=== PATIENT | female | born 1985 | race Caucasian/White ===

== ENCOUNTER 2018-06-07 11:42 | Emergency (ER) | payer BC, OTHER ==
[2018-06-07] MEDS ORDERED: Metoclopramide 10 MG/2 ML SDV IVPUSH ONE (12:20)
[2018-06-07] MEDS ORDERED: Sodium Chloride 0.9% 10 ML Syringe FLUSH PRN (12:20)
[2018-06-07] MEDS ORDERED: Sodium Chloride 0.9% 500 ML IV ONE (12:20)
[2018-06-07] MEDS ORDERED: Acetaminophen 325 MG Tab PO ONE (12:20)
[2018-06-07] MEDS ORDERED: Loratadine 10 MG Tab PO ONE (12:23)
[2018-06-07] MEDS ORDERED: predniSONE 20 MG Tab PO ONE (12:23)
[2018-06-07] MEDS ORDERED: Ketorolac 30 MG/ML SDV IVPUSH SCH (12:30)
--- NOTE | 2018-06-07 12:34 | EDM.PDOC ---
ED HPI GENERAL MEDICAL PROBLEM - General Chief Complaint: Headache Stated Complaint: HEADACHE,RASH AND LEGS TINGLING Time Seen by Provider: 06/07/18 11:56 Source of Information: Reports: Patient, Family (spouse), RN Notes Reviewed - History of Present Illness INITIAL COMMENTS - FREE TEXT/NARRATIVE: 32 year old female with onset of Haabout 6 days ago, followed by intermitant chills, sweats, generalized achiness much of the last week. Started breaking out in generalized rash yesterday, worse today despite at least 1 or 2 doses of benadry. Not itchy. Has been out in the sun a lot, she and her [place]. [place]. Using sunblock. Denies sore throat. Possibly some mosquito exposure over the last 1 to 2 wks. Has mild neck soreness and stiffness as well. Has also had some tingling of both lower legs yesterday and today. Headache Pain Score (Numeric/FACES): 7 - Related Data Allergies Allergy/AdvReac Type Severity Reaction Status Date / Time No Known Allergies Allergy Verified 06/07/18 11:55 Home Meds: Home Meds . [No Known Home Meds] 06/07/18 [History] Past Medical History [employer] History: Reports: Other (See Below) Other [employer]OPER History: PCOS - Past Surgical History HEENT Surgical History: Reports: LASIK, Oral Surgery GI Surgical History: Reports: Appendectomy Social & Family History - Tobacco Use Smoking Status *Q: Current Every Day Smoker Years of Tobacco use: 16 Packs/Tins Daily: 0.5 - Caffeine Use Caffeine Use: Reports: Coffee, Energy Drinks, Soda - Recreational Drug Use Recreational Drug Use: No ED ROS GENERAL - Review of Systems Review Of Systems: See Below Constitutional: Reports: Fever (possible low grade), Chills, Malaise, Fatigue HEENT: Denies: Rhinitis, Sinus Problem, Throat Pain, Throat Swelling Respiratory: Denies: Shortness of Breath, Cough Cardiovascular: Denies: Chest Pain GI/Abdominal: Denies: Abdominal Pain, Diarrhea, Nausea, Vomiting Musculoskeletal: Reports: Neck Pain (mild neck discomfort and stiffness) Skin: Reports: Rash, Erythema Neurological: Reports: Numbness (mild bilat lower legs and feet) - Physical Exam Exam: See Below General Appearance: Alert, No Apparent Distress Eye Exam: Bilateral Eye: PERRL Nose: Normal Inspection Throat/Mouth: Normal Inspection, Normal Oropharynx Head Exam: Atraumatic. No: Facial Swelling Neck: Supple, Full Range of Motion (with very mild posterior discomfort). No: Lymphadenopathy (L), Lymphadenopathy (R) Respiratory/Chest: No Respiratory Distress, Lungs Clear, Normal Breath Sounds Cardiovascular: Regular Rate, Rhythm GI/Abdominal: Soft, Non-Tender Neuro Exam (Abbreviated): Alert, Oriented, No Motor/Sensory Deficits Back Exam: Normal Inspection Extremities: Normal Inspection, Normal Range of Motion Skin Exam: Warm, Dry, Erythema (mild to moderate erythema mostly sun exposed areas of body, mild diffuse rash also primarily sun exposed areas of body) Course - Vital Signs Last Recorded V/S: Last Vital Signs Temp 98.4 F 06/07/18 11:58 Pulse 72 06/07/18 11:58 Resp 20 06/07/18 11:58 BP 112/83 06/07/18 11:58 Pulse Ox 97 06/07/18 11:58 - Orders/Labs/Meds Orders: Active Orders 24 hr Category Date Time Status Peripheral IV Care [RC] . DIRECTED Care 06/07/18 12:20 Active [facility]IR[facility] IGM [REF] Stat Lab 06/07/18 12:35 Received Ketorolac [Toradol] Med 06/07/18 12:30 Active 30 mg IVPUSH ONETIME Sodium Chloride 0.9% [Saline Flush] Med 06/07/18 12:20 Active 10 ml FLUSH ASDIRECTED PRN Peripheral IV Insertion Adult [OM.PC] Stat Oth 06/07/18 12:20 Ordered Medication Orders Ketorolac Tromethamine (Toradol) 30 mg IVPUSH ONETIME [facility] Last Admin: 06/07/18 12:51 Dose: 30 mg Sodium Chloride (Saline Flush) 10 ml FLUSH ASDIRECTED PRN PRN Reason: Keep Vein Open Last Admin: 06/07/18 12:57 Dose: 10 ml Labs: Laboratory Tests 06/07/18 06/07/18 Range/Units 12:35 12:35 WBC 4.21 (3.98-10.04) K/mm3 RBC 4.24 (3.98-5.22) M/mm3 Hgb 13.3 (11.2-15.7) gm/L Hct 39.5 (34.1-44.9) % MCV 93.2 (79.4-94.8) fl MCH 31.4 (25.6-32.2) pg MCHC 33.7 (32.2-35.5) g/dl RDW Std Deviation 44.5 (36.4-46.3) fL Plt Count 161 L (182-369) K/mm3 MPV 10.9 (9.4-12.3) fl Neutrophils % (Manual) 39 L (40-60) % Band Neutrophils % 1 (0-10) % Lymphocytes % (Manual) 50 H (20-40) % Atypical Lymphs % 0 % Monocytes % (Manual) 8 (2-10) % Eosinophils % (Manual) 2 (0.7-5.8) % Basophils % (Manual) 0 L (0.1-1.2) Platelet Estimate Adequate RBC Morph Comment Normal Sodium 140 (136-145) mEq/L Potassium 3.9 (3.5-5.1) mEq/L Chloride 107 (98-107) mEq/L Carbon Dioxide 25 (21-32) mEq/L Anion Gap 11.9 (5-15) BUN 10 (7-18) mg/dL Creatinine 1.2 H (0.55-1.02) mg/dL Est Cr Clr Drug Dosing 57.58 mL/min Estimated GFR (MDRD) 52 (>60) mL/min BUN/Creatinine Ratio 8.3 L (14-18) Glucose 95 (74-106) mg/dL Calcium 7.9 L (8.5-10.1) mg/dL Total Bilirubin 0.2 (0.2-1.0) mg/dL AST 17 (15-37) U/L ALT 23 (14-59) U/L Alkaline Phosphatase 61 (46-116) U/L Total Protein 6.6 (6.4-8.2) g/dl Albumin 3.5 (3.4-5.0) g/dl Globulin 3.1 gm/dL Albumin/Globulin Ratio 1.1 (1-2) Meds: Medications Generic Name Dose Route Start Last Admin Trade Name Freq PRN Reason Stop Dose Admin Ketorolac Tromethamine 30 mg 06/07/18 12:30 06/07/18 12:51 Toradol IVPUSH 30 mg ONETIME SANJIV Administration Sodium Chloride 10 ml 06/07/18 12:20 06/07/18 12:57 Saline Flush FLUSH 10 ml ASDIRECTED PRN Administration Keep Vein Open Discontinued Medications Generic Name Dose Route Start Last Admin Trade Name Zackary PRN Reason Stop Dose Admin Acetaminophen 975 mg 06/07/18 12:20 06/07/18 12:54 Tylenol PO 06/07/18 12:21 975 mg NOW ONE Administration Sodium Chloride 500 mls @ 999 mls/hr 06/07/18 12:20 06/07/18 12:52 Normal Saline IV 06/07/18 12:50 999 mls/hr .BOLUS ONE Administration Loratadine 10 mg 06/07/18 12:23 06/07/18 12:54 Claritin PO 06/07/18 12:24 10 mg ONETIME ONE Administration Metoclopramide HCl 5 mg 06/07/18 12:20 06/07/18 12:53 Reglan IVPUSH 06/07/18 12:21 5 mg ONETIME ONE Administration Prednisone 40 mg 06/07/18 12:23 06/07/18 12:54 Prednisone PO 06/07/18 12:24 40 mg ONETIME ONE Administration Departure - Departure Time of Disposition: 14:11 Disposition: Home, Self-Care 01 Condition: Fair Clinical Impression: Skin rash Headache Qualifiers: Headache type: unspecified Headache chronicity pattern: acute headache Intractability: not intractable Qualified Code(s): R51 - Headache - Discharge Information Referrals: PCP,None [Primary Care Provider] - Forms: ED Department Discharge Additional Instructions: rest, avoid being out in the sun for the next 3 to 4 days until rash has completely resolved. Alternate tylenol and advil or aleve as needed for any further headache. Claritin (available OTC) 10 mg daily for rash, prednisone 40 mg next 2 mornings and than 20 mg for an addition 2 days. [place] Nile Virus screen has been sent [facility] the state lab. It usually takes about 4 days to get results. Follow up clinic in about 4 days for recheck and for results of WNV screen. Call [phone] for appointment. Return to ED as needed if symptoms worsening in any way. - My Orders Last 24 Hours: My Active Orders 06/07/18 12:20 Peripheral IV Care [RC] . DIRECTED Sodium Chloride 0.9% [Saline Flush] 10 ml FLUSH ASDIRECTED PRN Peripheral IV Insertion Adult [OM.PC] Stat 06/07/18 12:30 Ketorolac [Toradol] 30 mg IVPUSH ONETIME 06/07/18 12:35 [facility] IGM [REF] Stat - Assessment/Plan Last 24 Hours: My Active Orders 06/07/18 12:20 Peripheral IV Care [RC] . DIRECTED Sodium Chloride 0.9% [Saline Flush] 10 ml FLUSH ASDIRECTED PRN Peripheral IV Insertion Adult [OM.PC] Stat 06/07/18 12:30 Ketorolac [Toradol] 30 mg IVPUSH ONETIME 06/07/18 12:35 [facility] IGM [REF] Stat
--- NOTE | 2018-06-07 13:45 | CT ---
Head CT Technique: Multiple axial sections through the brain were obtained. Intravenous contrast was not utilized. Comparison: No prior intracranial imaging. Findings: Ventricles along with basal cisterns and sulci over the convexities are within normal limits for the patient's age. No abnormal parenchymal densities are seen. No evidence of intracranial hemorrhage. No midline shift or mass effect is seen. Bone window settings were reviewed which shows no acute calvarial abnormality. Visualized sinuses are clear. Impression: 1. Nothing acute is seen on noncontrast head CT exam. Diagnostic code #1
== END 2018-06-07 14:30 | disposition home or self-care (01) ==
LOC: JD.ED 11:42
DX: R51 Headache (principal); R21 Rash and other nonspecific skin eruption; F17.210 Nicotine dependence, cigarettes, uncomplicated
CPT/HCPCS: 36415; 70450; 80053; 85007; 85027; 96361; 96374; 96375; 99284; A9270; J1885; J2765; J7040; J7050

== ENCOUNTER 2025-08-09 07:19 | Day surgery (SDC) | payer BC ==
[2025-08-09] MEDS: Lactated Ringers 1,000 ML IV SCH (06:45)
[2025-08-09] MEDS: Phenazopyridine 95 MG Tab PO SCH (07:00)
[2025-08-09 07:16] LABS: BASOPHILS ABSOLUTE AUTO 0.0 K/mm3 (0.0-0.2); BASOPHILS PERCENT AUTO 0.4 % (0.0-1.0); EOSINOPHILS ABSOLUTE AUTO 0.2 K/mm3 (0.0-0.4); EOSINOPHILS PERCENT AUTO 2.8 % (0.0-6.0); IMMATURE GRAN ABSOLUTE AUTO 0.02 K/mm3 (0.00-0.05); IMMATURE GRAN PERCENT AUTO 0.3 % (0.0-0.4); LYMPHOCYTES ABSOLUTE AUTO 2.1 K/mm3 (1.0-4.8); LYMPHOCYTES PERCENT AUTO 27.4 % (24.0-44.0); MEAN PLATELET VOLUME 10.2 fl (9.4-12.3); MONOCYTES ABSOLUTE AUTO 0.7 K/mm3 (0.0-0.8); MONOCYTES PERCENT AUTO 8.9 % (0.0-8.0); NEUTROPHILS ABSOLUTE AUTO 4.6 K/mm3 (1.8-7.7); NEUTROPHILS PERCENT AUTO 60.2 % (41.0-71.0); NRBC ABSOLUTE 0.00 (0.00-0.02); NRBC PERCENT 0.0 % (0.0-0.2); PLATELET COUNT,PLT 276 K/mm3 (150-400); RED BLOOD CELL COUNT 3.96 M/mm3 (4.10-5.30); WHITE BLOOD CELL COUNT,WBC 7.62 K/mm3 (3.9-11.3)
[~2025-08-09 07:19] MED LIST: Lidocaine 1% 2 ML ONE; Midazolam 1 MG/ML 2 ML SDV ONE; Propofol 200 MG/20 ML SDV ONE; Sodium Chloride 0.9% 10 ML Syringe FLUSH PRN; Sodium Chloride 0.9% 10 ML Syringe FLUSH SCH; fentaNYL 100 MCG/2 ML SDV ONE
[2025-08-09] MEDS ORDERED: Ondansetron 4 MG/2 ML SDV IVPUSH PRN (07:23)
[2025-08-09] MEDS ORDERED: fentaNYL 100 MCG/2 ML SDV IVPUSH PRN (07:23)
[2025-08-09 07:25] LABS: BLOOD UREA NITROGEN,BUN 12 mg/dL (7-18); CARBON DIOXIDE,CO2 25 mEq/L (21-32); CHLORIDE,CL 106 mEq/L (98-107); CREATININE 1.2 mg/dL (0.55-1.02); ESTIMATED GFR 58 mL/min (>60); GLUCOSE RANDOM 114 mg/dL (70-99); POTASSIUM,K 4.0 mEq/L (3.5-5.1); SODIUM,NA 140 mEq/L (136-145)
[2025-08-09] MEDS ORDERED: Ketorolac 15 MG/ML SDV ONE (07:52)
[2025-08-09] MEDS ORDERED: Ondansetron 4 MG/2 ML SDV ONE (07:52)
[2025-08-09] MEDS ORDERED: Dexamethasone 4 MG/ML 5 ML MDV ONE (07:52)
[2025-08-09] MEDS: EPINEPHrine 1 MG/ML SDV ONE (08:24)
== END 2025-08-09 13:15 | disposition home or self-care (01) ==
LOC: JD.SDS 07:19
PROVIDERS: ATTEND Obstetrics & Gynecology
DX: N80.03 Adenomyosis of the uterus (principal); N83.8 Other noninflammatory disorders of ovary, fallopian tube and broad ligament; N94.4 Primary dysmenorrhea; Z88.0 Allergy status to penicillin; Z79.899 Other long term (current) drug therapy; Z87.891 Personal history of nicotine dependence
CPT/HCPCS: 36415; 58552; 80048; 81025; 85025; 86850; 86900; 86901; A9270; J0169; J0690; J1100; J1885; J2003; J2250; J2405; J2704; J3010; J7120; 00944; J3490

== ENCOUNTER → 2025-10-06 | Day surgery (SDC) | payer BC ==
[~2025-10-06] MED LIST changes: -Lidocaine 1% 2 ML ONE; +Ondansetron 4 MG/2 ML SDV IVPUSH PRN; -Propofol 200 MG/20 ML SDV ONE; +Ropivacaine 0.5% 5 MG/ML 30 ML SDV ONE; +fentaNYL 100 MCG/2 ML SDV IVPUSH PRN
[2025-10-06] MEDS: Lactated Ringers 1,000 ML IV SCH (06:30)
== END | disposition home or self-care (01) ==
LOC: JD.SDS 06:00
PROVIDERS: ATTEND Orthopaedic Surgery
DX: G56.03 Carpal tunnel syndrome, bilateral upper limbs (principal); E66.9 Obesity, unspecified; Z88.0 Allergy status to penicillin; Z68.35 Body mass index [BMI] 35.0-35.9, adult; Z87.891 Personal history of nicotine dependence; Z79.899 Other long term (current) drug therapy
CPT/HCPCS: 64450; 64721; J0665; J2003; J2250; J2795; J7120; 01810; J3010

== ENCOUNTER 2025-10-17 06:00 | Day surgery (SDC) | payer BC ==
[~2025-10-17 06:00] MED LIST changes: -Midazolam 1 MG/ML 2 ML SDV ONE; -Ondansetron 4 MG/2 ML SDV IVPUSH PRN; -Ropivacaine 0.5% 5 MG/ML 30 ML SDV ONE; -fentaNYL 100 MCG/2 ML SDV IVPUSH PRN; -fentaNYL 100 MCG/2 ML SDV ONE
[2025-10-17] MEDS ORDERED: Propofol 200 MG/20 ML SDV ONE ×2 (06:26→06:53)
[2025-10-17] MEDS: Lactated Ringers 1,000 ML IV SCH (06:30)
[2025-10-17] MEDS ORDERED: Midazolam 1 MG/ML 2 ML SDV ONE (06:52)
== END 2025-10-17 08:04 | disposition home or self-care (01) ==
LOC: JD.SDS 06:00
PROVIDERS: ATTEND Orthopaedic Surgery
DX: G56.03 Carpal tunnel syndrome, bilateral upper limbs (principal); E66.9 Obesity, unspecified; Z68.35 Body mass index [BMI] 35.0-35.9, adult; Z87.891 Personal history of nicotine dependence; Z88.0 Allergy status to penicillin
CPT/HCPCS: 64721; J0665; J2003; J2250; J2704; J7120; 01810